=== PATIENT | female | born 1950 | race Caucasian/White ===

== ENCOUNTER 2016-06-09 13:11 | Day surgery (SDC) | payer OTHER ==
[~2016-06-09] VITALS: Ht 158.8 cm; Wt 44.5 kg
[2016-06-09 13:45] VITALS: Ht 158.8 cm; Wt 44.5 kg
[2016-06-09] MEDS ORDERED: celexa PO (14:30)
[2016-06-09] MEDS ORDERED: percocet PO (14:30)
[2016-06-09] MEDS ORDERED: gabapentin PO (14:30)
[2016-06-09] MEDS ORDERED: meloxicam PO (14:30)
[2016-06-09] MEDS ORDERED: [UNRECOGNIZED DRUG - OTHER] PO (14:30)
[2016-06-09] MEDS ORDERED: methocarbamol PO (14:30)
[2016-06-09] MEDS ORDERED: trazodone PO (14:30)
[2016-06-09] MEDS ORDERED: lovastatin PO (14:30)
[2016-06-09 15:28] VITALS: BP 137/66; PULSE 57; RESP 16
[2016-06-09] MEDS ORDERED: PROPOFOL 40 ML ONE (15:31)
[2016-06-09] MEDS ORDERED: LIDOCAINE 2% (SDV) 5 ML INJ ONE (15:31)
[2016-06-09 16:15] VITALS: BP 116/58; PULSE 67; RESP 16
[2016-06-09 16:38] VITALS: BP 109/67; PULSE 68; RESP 18
--- NOTE | 2016-06-10 14:37 | GILP ---
DATE OF PROCEDURE: NAME OF PROCEDURES: 1. Colonoscopy with polyp ablation. 2. Colonoscopy with biopsies and localization tattoo. SURGEON: Amira Washburn MD PREOPERATIVE DIAGNOSIS(ES) POSTOPERATIVE DIAGNOSIS(ES) HISTORY AND INDICATIONS: The patient is being evaluated for unexplained weight loss. PREMEDICATION: Monitored anesthesia care by anesthesiologist. INSTRUMENT USED: Olympus colonoscope. PREPARATION: Adequate. TECHNIQUE: After informed consent, with the patient/relatives understanding the procedure, its indic ations potential risks and complications, including but not limited to: allergic reaction, bleeding, perforation, infection, missed lesions and after all pertinent questions were answered to the patie nt's satisfaction, the patient/relatives signed the witnessed informed consent. Following this, premedication was administered slowly IV push by under careful cardiovascular and re spiratory monitoring with pulse oximetry, automatic blood pressure and cable dispatcher. Once the sedativ e effect was achieved, the patient was placed in the left lateral decubitus position, digital rectal examination was performed. The colonoscope was then introduced and advanced under visual control th roughout all segments of the colon including: the rectum, sigmoid, descending colon, splenic flexure , transverse colon, hepatic flexure, ascending colon and finally reaching the cecum which was clearl y identified by transillumination, finger indentation and the ileocecal valve. Careful examination o f the mucosa of the lower gastrointestinal tract both on insertion as well as withdrawal of the inst rument disclosed the following findings: Rectal Examination: No evidence of perirectal disease, no masses. Colonic Mucosa: There is a 2 cm broad-based polyp in the proximal rectum approximately 12 cm from t he anal verge. The polyp was extensively biopsied and localization tattoo was applied. There is a 6 mm polyp opposite to the previously described lesion which was left untouched as it angelo l be removed at the time of surgery. Two small 4 mm polyps were noted in the sigmoid colon, were completely ablated with biopsy forceps. There is diverticulosis throughout the colon which is graded as mild. The remainder of colonic mucosa is unremarkable. The ileocecal valve was clearly identified and alma rosa ears unremarkable. The instrument was withdrawn reexamining the mucosa in detail. No additional ab normalities are noted with exception of moderate-sized internal hemorrhoids. The instrument was then withdrawn, the patient tolerated the procedure well and was transferred out of the Endoscopy Suite awake and in good condition to continue recovery under observation. IMPRESSION: 1. A 2 cm broad-based polyp in the proximal rectum at 12 cm from the anal verge, biopsied and loca lization tattoo applied. 2. A 6 mm polyp opposite to the 2 cm broad-based lesion, left untouched as it will be in the same s urgical specimen. 3. Two small 4 mm polyps in the sigmoid colon ablated. 4. Diverticulosis, mild. 5. Moderate-sized internal hemorrhoids. PLAN: Pathology will be reviewed as soon as available. Surgical evaluation. Further recommendatio n will depend on the patient's clinical course. Dictated By: AMIRA WASHBURN MS/YOLA Conf#: [id number] DID#: [id number]
--- NOTE | 2016-06-10 15:12 | GILP ---
DATE OF PROCEDURE: 06/09/2016 PROCEDURE: Esophagogastroduodenoscopy with biopsies. BRIEF HISTORY/INDICATIONS: Patient is being evaluated for unexplained weight loss. PREMEDICATION: Monitored anesthesia care by anesthesiologist. SURGEON: Kee Washburn MD. TECHNIQUE: After informed consent, with the patient/relatives understanding the procedure, its indic ations, potential risks and complications, including but not limited to: allergic reaction, bleeding , perforation or infection, and after all pertinent questions were answered to the patients satisfac tion, the patient/relatives signed witnessed informed consent. Following this, premedication was administered slowly IV push under careful cardiovascular and respi ratory monitoring with pulse oximetry, automatic blood pressure and groundwater monitoring technician. Once the sedative effect was achieved the patient was place in the left lateral decubitus, the panen doscope was introduced and advanced under visual control. Careful examination of the upper gastrointestinal tract, both on insertion as well as withdrawal of the instrument disclosed the following findings: ESOPHAGUS: The distal esophagus shows erythema and edema of the mucosa of a moderate degree. STOMACH: Upon entrance to the stomach, air was insufflated, the gastric beltran distended normally. There is erythema and edema of the mucosa of a moderate degree. Biopsies were obtained to rule out H. pylori infection. PYLORUS: he pylorus appears patent and within normal limits, with no evidence of gastric outlet obst ruction. DUODENUM: The duodenal mucosa was carefully examined in the duodenal bulb as well as the second port ion of the duodenum and appears unremarkable with no evidence of duodenitis, ulcer or neoplasm. The instrument was then withdrawn, the patient tolerated the procedure well and was transfer out of the endoscopy suite awake, and in good condition to continue recovery under observation IMPRESSION: 1. Distal esophagitis. 2. Gastritis, rule out Helicobacter pylori infection; biopsies obtained. PLAN: The patient will be treated with PPIs. Further recommendation will depend on review of biops ies as well as patient's clinical course. Dictated By: KEE WASHBURN MS/YOLA Conf#: [id number] DID#: [id number]
== END 2016-06-09 16:34 | disposition home or self-care (01) ==
LOC: GIL 13:11
PROVIDERS: ATTEND Internal Medicine Gastroenterology
DX: Z12.11 Encounter for screening for malignant neoplasm of colon (principal); D12.5 Benign neoplasm of sigmoid colon; K20.8 Other esophagitis; K63.5 Polyp of colon; K29.70 Gastritis, unspecified, without bleeding
CPT/HCPCS: 43239; 45380; 88305; 88312; Z7610

== ENCOUNTER 2016-07-16 09:40 | Inpatient (IN) | payer OTHER ==
[2016-07-15 12:02] VITALS: Ht 160 cm; Wt 46.0 kg
[~2016-07-16] VITALS: Ht 160 cm; Wt 46.0 kg
[2016-07-16] VITALS (25 sets, daily range): BP systolic 102–167; BP diastolic 49–81; PULSE 56–96; RESP 18–28
[~2016-07-16 09:40] MED LIST: DESFLURANE 15 MIN ONE; ONDANSETRON 4 MG INJ ONE; ROCURONIUM 50 MG INJ ONE; SUCCINYLCHOLINE CHLORIDE 100 MG/5 ML SYG IV ONE; [UNRECOGNIZED DRUG - OTHER] PO; celexa PO; gabapentin PO; lovastatin PO; meloxicam PO; methocarbamol PO; percocet PO; trazodone PO
[2016-07-16] MEDS ORDERED: OXYC-209 PO (10:16)
[2016-07-16] MEDS ORDERED: CITA-104 PO (10:16)
[2016-07-16] MEDS ORDERED: PREM9 PO (10:17)
[2016-07-16] MEDS ORDERED: MELO-109 PO (10:17)
[2016-07-16] MEDS ORDERED: MEDR2.5T PO (10:18)
[2016-07-16] MEDS ORDERED: OMEP40CA6 PO (10:18)
[2016-07-16] MEDS ORDERED: METH750T2 PO (10:19)
[2016-07-16] MEDS ORDERED: LOVA10TA63 PO (10:19)
[2016-07-16] MEDS ORDERED: TRAZ50TA18 PO (10:20)
[2016-07-16] MEDS ORDERED: ALPR1TAB2 PO (10:20)
[2016-07-16] MEDS ORDERED: GABA-528 PO (10:20)
[2016-07-16] MEDS ORDERED: ALBU18HF INHALATION (10:21)
[2016-07-16] MEDS ORDERED: MOME13HF2 INHALATION (10:21)
[2016-07-16 10:56] LABS: ADD SCAN DIFF NO
[2016-07-16 11:00] LABS: BASOPHILS % 0.5 % (0.0-2.0); EOSINOPHILS # 0.1 10^3/ul (0.0-0.5); EOSINOPHILS % 0.9 % (0.0-7.0); HEMATOCRIT 36.6 % (37.0-47.0); HEMOGLOBIN 12.4 g/dl (12.0-16.0); LYMPHOCYTES # 1.9 10^3/ul (0.8-2.9); MEAN CORPUSCULAR HEMOGLOBIN 32.4 pg (29.0-33.0); MEAN CORPUSCULAR HGB CONC 33.9 g/dl (32.0-37.0); MEAN CORPUSCULAR VOLUME 95.6 fl (82.0-101.0); MONOCYTE # 0.5 10^3/ul (0.3-0.9); MONOCYTES % 5.5 % (0.0-11.0); NEUTROPHIL # 5.7 10^3/ul (1.6-7.5); NEUTROPHILS % 69.7 % (39.0-77.0); PLATELET COUNT 291 10^3/UL (140-415); RED BLOOD COUNT 3.83 10^6/ul (4.20-5.40); RED CELL DISTRIBUTION WIDTH 11.5 % (11.5-14.5); WHITE BLOOD COUNT 8.2 10^3/ul (4.8-10.8)
[2016-07-16 11:11] LABS: INR 1.02; PROTIME 13.4 Sec (12.2-14.2)
[2016-07-16 11:13] LABS: PARTIAL THROMBOPLASTIN TIME 34.4 Sec (25.0-35.0)
[2016-07-16] MEDS: SOD CHLORIDE 0.9% 1,000 ML IV SCH ×2 (11:30→22:57)
[2016-07-16] MEDS ORDERED: AMPICILLIN/SULB 3 GM/NS (PMX) 100 ML IVPB SCH (11:30)
[2016-07-16] MEDS ORDERED: Metronidazole 500 MG in NS 100 ML IVPB SCH (11:30)
[2016-07-16] MEDS ORDERED: FENTAnyl 50 MCG/ML VIAL ONE ×3 (12:22→15:08)
[2016-07-16 13:29] LABS: CREATININE 0.57 mg/dl (0.44-1.00); POTASSIUM 4.2 mmol/L (3.5-5.1)
[2016-07-16] MEDS ORDERED: METOCLOPRAMIDE 10 MG INJ IV PRN (13:30)
[2016-07-16] MEDS ORDERED: MEPERIDINE 25 MG INJ IV PRN (13:30)
[2016-07-16] MEDS ORDERED: DIPHENHYDRAMINE 50 MG INJ IV PRN (13:30)
[2016-07-16] MEDS ORDERED: HYDROmorphONE (0.2 MG/ML) 10ML SYG IV PRN ×2 (13:30)
[2016-07-16] MEDS ORDERED: FENTAnyl 50 MCG/ML VIAL IV PRN ×2 (13:30)
[2016-07-16] MEDS ORDERED: ONDANSETRON 4 MG INJ IV PRN ×2 (13:30→19:30)
[2016-07-16 13:32] LABS: CALCIUM 9.2 mg/dl (8.4-10.2)
[2016-07-16] MEDS ORDERED: ROPIVACAINE 0.5 % 30 ML VIAL ONE (14:59)
[2016-07-16] MEDS ORDERED: PROPOFOL 40 ML ONE (14:59)
[2016-07-16] MEDS ORDERED: GLYCOPYRROLATE 0.4 MG INJ ONE (14:59)
[2016-07-16] MEDS ORDERED: LIDOCAINE 2% (SDV) 5 ML INJ ONE (14:59)
[2016-07-16] MEDS ORDERED: NEOSTIGMINE 3 MG/3 ML SYRINGE ONE (14:59)
[2016-07-16] MEDS: HYDROmorphONE (0.2 MG/ML) 10ML SYG IV PRN ×3 (15:51→16:06)
[2016-07-16] MEDS ORDERED: morphine 2 MG INJ IV PRN (16:00)
[2016-07-16] MEDS: HYDROmorphONE 0.2 MG/ML PCA IV SCH (16:06)
--- NOTE | 2016-07-16 16:09 | OPR ---
DATE OF OPERATION: 07/16/2016 INDICATIONS: This is a 65-year-old female with an unresectable rectal polyp. She is brought to the hospital for laparoscopic rectal LAR. Risks, alternatives, benefits, and personnel were discussed with the patient. The patient expressed understanding and consents to the operation. PREOPERATIVE DIAGNOSIS: Unresectable rectal polyp. POSTOPERATIVE DIAGNOSIS: Unresectable rectal polyp. OPERATION PERFORMED: 1. Laparoscopic low anterior resection with hand assist. 2. Laparoscopic splenic flexure mobilization. SURGEON: Sola Saldivar MD SPECIMEN: Low anterior rectum and proximal additional rectal margin and proximal and distal anastom otic donuts. COMPLICATIONS: None. ANESTHESIA: General. PROCEDURE: The patient was taken to the OR and prepped and draped in usual sterile fashion. Surgic al timeout was performed. IV antibiotics were given. Infraumbilical midline incision is made with a 15 blade. Dissection cautery was carried down to the fascia, 0 Vicryl stay sutures were placed on either side of the midline. The midline was entered. Chio trocar is introduced. Pneumoperitone um established. Suprapubic 12 mm optical trocar in right lower quadrant, 12 mm optical trocars are placed under direct visualization. Upon initial inspection, there are tattoo hernandez that are actuall y a lot lower than suspected from the colonoscopy near the peritoneal reflection. Dissection was fi rst initiated by addressing the left colic artery. The left colic artery was identified and dissect ed out with laparoscopic Harmonic. This was then divided with 45 [place] vascular load stapler. Ad ditional clips were placed for reinforcement. White line of [place] was followed proximally along the left colon all the way to the splenic flexure. The splenic flexure is mobilized. This area was la paroscopically mobilized by medialization with laparoscopic Harmonic and blunt dissection. Addition ally, the transverse colon is divided from the omentum with laparoscopic Harmonic. Additionally, th e rectum is mobilized by freeing up the lateral stalks. Of note, the rectum was mobilized fully wit h cranial traction. It appeared that the [place] stapler would not fire below the tattoo alicia, whic h was near the peritoneal reflection. The GelPort was used and placed in the midline. This allowed further medialization of the colon and mobilization. The rectum was pulled more cranially and rect al artery was divided using laparoscopic Harmonic. Even with further mobilization, it appeared that the [place] stapler would fire below the tattoo alicia. The midline incision was extended inferiorly . The rectum was then mobilized medially and left colon was fully mobilized medially. The rectum w as divided along the sacral promontory with a 45 [place] blue load stapler. The contour stapler was used to fire below the tattoo alicia. The specimen was marked with proximal rectum with suture after it was further divided from the mesorectum. This was sent for specimen. The pathologist open the specimen grossly and found the unresectable polyp. Additional margin of rectum was then divided and sent for specimen. There was good vascular flow to the distal portion of the colon. EEA sizers we re placed into the colon up to 29. The anvil sutured down with a running 3-0 PDS. The anal sizers were placed with appropriate identification of the distal rectum. EEA stapler was placed into the a nus and the anvil appropriately placed and was fired. Leak test was performed by placing irrigation into the pelvis and with insufflation of bulb syringe. Additionally, rigid proctoscopy was perform ed with identification of good anastomosis. The midline was then closed with 2 looped #1 PDS from s uperior to inferior and anterior to superior and tied in the midline. The wound was irrigated with irrigation. The skin was closed with skin martinez. Dry dressings were applied. Dictated By: SOLA HERRERA/YOLA Conf#: [id number] DID#: [id number]
[2016-07-16 16:34] LABS: ADD SCAN DIFF NO
[2016-07-16 16:37] LABS: BASOPHIL # 0.1 10^3/ul (0.0-0.1); BASOPHILS % 0.3 % (0.0-2.0); EOSINOPHILS % 0.1 % (0.0-7.0); HEMATOCRIT 38.8 % (37.0-47.0); HEMOGLOBIN 12.9 g/dl (12.0-16.0); LYMPHOCYTES # 1.5 10^3/ul (0.8-2.9); LYMPHOCYTES % 8.2 % (15.0-51.0); MEAN CORPUSCULAR HGB CONC 33.2 g/dl (32.0-37.0); MEAN CORPUSCULAR VOLUME 96.3 fl (82.0-101.0); MEAN PLATELET VOLUME 9.6 fl (7.4-10.4); MONOCYTE # 0.9 10^3/ul (0.3-0.9); MONOCYTES % 5.1 % (0.0-11.0); NEUTROPHIL # 15.2 10^3/ul (1.6-7.5); NEUTROPHILS % 85.9 % (39.0-77.0); PLATELET COUNT 330 10^3/UL (140-415); RED BLOOD COUNT 4.03 10^6/ul (4.20-5.40); RED CELL DISTRIBUTION WIDTH 11.5 % (11.5-14.5); WHITE BLOOD COUNT 17.8 10^3/ul (4.8-10.8)
[2016-07-16] MEDS: CIPROFLOXACIN 400MG/D5W 200 ML IVPB SCH (16:39)
[2016-07-16] MEDS: LACTATED RINGER'S 1,000 ML IV SCH ×2 (16:41→23:08)
[2016-07-16 16:49] LABS: ALBUMIN 3.5 g/dl (3.3-4.9)
[2016-07-16 16:52] LABS: ALBUMIN/GLOBULIN RATIO 1.29; BILIRUBIN,INDIRECT 0.2 mg/dl (0-1.1); BILIRUBIN,TOTAL 0.2 mg/dl (0.2-1.3); TOTAL PROTEIN 6.2 g/dl (6.1-8.1)
[2016-07-16 16:55] LABS: CALCIUM 8.6 mg/dl (8.4-10.2); CREATININE 0.58 mg/dl (0.44-1.00); POTASSIUM 3.9 mmol/L (3.5-5.1)
--- NOTE | 2016-07-16 18:58 | HP ---
DATE OF ADMISSION: 07/16/2016 CHIEF COMPLAINT: HISTORY OF PRESENT ILLNESS: History was obtained from medical records and some questions were asked from the patient. Patient was lethargic but arousable and was following commands. The patient is a 65-year-old female with bilateral rotator cuff repair, chronic pain syndrome and also has anxiety. The patient prior to surgery used to be on Xanax and trazodone and also was on gabapentin and Perc ocet. The patient was recently seen by Dr. Washburn for unexplained, unintentional weight loss and un derwent colonoscopy and EGD. EGD revealed distal esophagitis and gastritis; however, colonoscopy re vealed a 2 cm broad-based polyp in the proximal rectum at 12 cm from the anal verge. The 2 cm polyp was a broadbased lesion. The patient was referred to Dr. Saldivar underwent laparoscopic low anterior re section with hand assist. The polyp has been sent for pathology. The patient is being admitted for further evaluation and management. The patient denied any chest pain and is breathing comfortably, no reported vomiting, although patient does feel nauseated and has been given Zofran and Reglan rece ntly. No reported wheezing or hypoxemia. Since surgery, the patient has no leg edema. REVIEW OF SYSTEMS: Rather limited, the patient was sleepy. PAST MEDICAL HISTORY: As stated above. PAST SURGICAL HISTORY: As stated above. ALLERGIES: NONE. SOCIAL HISTORY: Ex-smoker. No alcohol use. FAMILY HISTORY: Negative for colon CA or colon polyp. PHYSICAL EXAMINATION: GENERAL: The patient is sleepy but easily arousable. Follows simple commands. VITAL SIGNS: Temperature 98.2, pulse 70, respirations 19, blood pressure 150/67, O2 saturation 97% on 2 liters nasal cannula. HEENT: Conjunctivae normal. Oropharynx revealed dry oral mucosa. Nose and ears normal. NECK: Supple. No mass, no thyromegaly. LUNGS: Clear to auscultation. CARDIOVASCULAR: S1, S2 normal, no murmur. ABDOMEN: Nondistended. EXTREMITIES: No leg edema. Pedal pulses palpable. SKIN: Without acute rash. NEUROLOGIC: The patient is lethargic but arousable and follows simple commands. LABORATORY DATA: Prior to surgery WBC 8.2, hemoglobin 12.4, platelet 291. Sodium 141, potassium 4. 2, BUN 15, creatinine 0.5, glucose 74. IMPRESSION: 1. Undetectable rectal polyp, status post laparoscopic low anterior resection. 2. Chronic bilateral shoulder pain status post bilateral rotator cuff repair. 3. Anxiety. PLAN: Patient admitted on medical floor. Patient will be kept n.p.o. She will be started on IV Cip ro and IV Flagyl. 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 We will use ____for deep venous thrombosis prophylax is. Will hold off on her p.o. medications. The patient apparently does have history of chronic obs tructive pulmonary disease due to smoking in the past and was taking Ventolin inhaler as well as Dul era. Will add DuoNeb twice a day and q.6h. p.r.n. postoperatively. We will obtain TSH in view of her history of weight loss. As per records from Dr. Washburn, the patient lost about 25 pounds in the last 6 months. The patient will continue to follow up with her primary care physician upon dischar ge for further evaluation and treatment. Dictated By: MISHA ENGLE/YOLA Conf#: [id number] DID#: [id number]
[2016-07-16 19:28] LABS: ADD UMIC NO; URINE BILIRUBIN (Dip) NEGATIVE (NEGATIVE); URINE BLOOD (Dip) NEGATIVE (NEGATIVE); URINE COLOR LT. YELLOW (YELLOW); URINE GLUCOSE (Dip) NEGATIVE (NEGATIVE); URINE KETONES (Dip) 3+ (NEGATIVE); URINE LEUKOCYTE ESTERASE (Dip) NEGATIVE (NEGATIVE); URINE NITRITE (Dip) NEGATIVE (NEGATIVE); URINE TOTAL PROTEIN (Dip) NEGATIVE (NEGATIVE); URINE UROBILINOGEN (Dip) 0.2 E.U./dL (0.1-1.0)
[2016-07-16 19:38] LABS: BACTERIA,URINE FEW; URINE RBCS 0-2 /HPF ([0,])
[2016-07-16] MEDS: metroNIDAZOLE 500 MG/NS (PMX) 100 ML IVPB SCH (20:18)
[2016-07-16] MEDS ORDERED: hydrALAzine 20 MG INJ IV PRN (21:00)
[2016-07-16] MEDS: METOCLOPRAMIDE 10 MG INJ IV PRN (23:08)
[2016-07-16] MEDS ORDERED: VITAMIN A & D 5 GM OINT PACKET TOP ONE (23:25)
[2016-07-17] MEDS ORDERED: METOCLOPRAMIDE 10 MG INJ IV SCH
[2016-07-17] MEDS: ONDANSETRON 4 MG INJ IV PRN ×3 (00:57→20:15)
[2016-07-17] MEDS: METOCLOPRAMIDE 10 MG INJ IV PRN ×3 (04:42→23:45)
[2016-07-17] MEDS: CIPROFLOXACIN 400MG/D5W 200 ML IVPB SCH (04:42)
[2016-07-17 05:08] VITALS: BP 154/70; PULSE 78; RESP 19
[2016-07-17 05:18] LABS: ADD SCAN DIFF NO
[2016-07-17 05:24] LABS: BASOPHILS % 0.1 % (0.0-2.0); HEMATOCRIT 37.2 % (37.0-47.0); HEMOGLOBIN 12.2 g/dl (12.0-16.0); LYMPHOCYTES % 5.2 % (15.0-51.0); MEAN CORPUSCULAR HEMOGLOBIN 31.4 pg (29.0-33.0); MEAN CORPUSCULAR HGB CONC 32.8 g/dl (32.0-37.0); MEAN CORPUSCULAR VOLUME 95.9 fl (82.0-101.0); MEAN PLATELET VOLUME 9.9 fl (7.4-10.4); MONOCYTES % 5.3 % (0.0-11.0); NEUTROPHIL # 16.5 10^3/ul (1.6-7.5); PLATELET COUNT 303 10^3/UL (140-415); RED BLOOD COUNT 3.88 10^6/ul (4.20-5.40); RED CELL DISTRIBUTION WIDTH 11.7 % (11.5-14.5); WHITE BLOOD COUNT 18.5 10^3/ul (4.8-10.8)
[2016-07-17 05:34] LABS: ALBUMIN 3.7 g/dl (3.3-4.9)
[2016-07-17 05:35] LABS: POTASSIUM 4.7 mmol/L (3.5-5.1)
[2016-07-17 05:37] LABS: ALBUMIN/GLOBULIN RATIO 1.27; BILIRUBIN,INDIRECT 0.2 mg/dl (0-1.1); BILIRUBIN,TOTAL 0.2 mg/dl (0.2-1.3); CREATININE 0.56 mg/dl (0.44-1.00); TOTAL PROTEIN 6.6 g/dl (6.1-8.1)
[2016-07-17 05:38] LABS: CALCIUM 8.7 mg/dl (8.4-10.2)
[2016-07-17] MEDS: metroNIDAZOLE 500 MG/NS (PMX) 100 ML IVPB SCH ×3 (05:55→21:04)
[2016-07-17 08:05] VITALS: BP 146/66; RESP 16
[2016-07-17] MEDS: HYDROmorphONE 0.2 MG/ML PCA IV SCH ×3 (11:30→20:28)
[2016-07-17] MEDS: LACTATED RINGER'S 1,000 ML IV SCH ×2 (11:33→21:33)
--- NOTE | 2016-07-17 12:29 | PN ---
Date/Time of Note Date/Time of Note DATE: 07/17/16 TIME: 12:28 Assessment/Plan VTE Prophylaxis VTE Prophylaxis Intervention: SCD's Lines/Catheters IV Catheter Type (from Nrsg): Peripheral IV Urinary Cath still in place: Yes Reason Cath still needed: urinary retention Assessment/Plan Chief Complaint/Hosp Course s/p lap hand assist converted to open LAR with low colorectal anastomosis Problems: Subjective 24 Hr Interval Summary Free Text/Dictation routine post op pain, no other issues Exam/Review of Systems Vital Signs Vitals Vital Signs Date Time Temp Pulse Resp B/P Pulse Ox O2 Delivery O2 Flow Rate FiO2 07/17/16 08:05 97.8 72 16 146/66 97 07/17/16 05:08 Nasal Cannula 2.0 Intake and Output 07/16/16 07/16/16 07/17/16 15:00 23:00 07:00 Intake Total 1800 ml 0 ml 1270 ml Output Total 300 ml 170 ml 1500 ml Balance 1500 ml -170 ml -230 ml Exam appropriately tender,dressings intact Results Result Diagram: 07/17/16 0430 07/17/16 0430 Results 24 hrs Laboratory Tests Test 07/16/16 15:54 07/16/16 16:15 07/17/16 04:30 Urine Color LT. YELLOW Urine Clarity CLEAR Urine pH 5.5 Urine Specific [place] 1.025 Urine Ketones 3+ H Urine Nitrite NEGATIVE Urine Bilirubin NEGATIVE Urine Urobilinogen 0.2 E.U./dL Urine Leukocyte Esterase NEGATIVE Urine Microscopic RBC 0-2 Urine Microscopic WBC 0-2 Urine Epithelial Cells FEW Urine Bacteria FEW Urine Hemoglobin NEGATIVE Urine Glucose NEGATIVE Urine Total Protein NEGATIVE White Blood Count 17.8 #H 18.5 H Red Blood Count 4.03 L 3.88 L Hemoglobin 12.9 12.2 Hematocrit 38.8 37.2 Mean Corpuscular Volume 96.3 95.9 Mean Corpuscular Hemoglobin 32.0 31.4 Mean Corpuscular Hemoglobin Concent 33.2 32.8 Red Cell Distribution Width 11.5 11.7 Platelet Count 330 303 Mean Platelet Volume 9.6 9.9 Neutrophils % 85.9 H 89.0 H Lymphocytes % 8.2 L 5.2 L Monocytes % 5.1 5.3 Eosinophils % 0.1 0.0 Basophils % 0.3 0.1 Nucleated Red Blood Cells % 0.0 0.0 Neutrophils # 15.2 H 16.5 H Lymphocytes # 1.5 1.0 Monocytes # 0.9 1.0 H Eosinophils # 0.0 0.0 Basophils # 0.1 0.0 Nucleated Red Blood Cells # 0.0 0.0 Sodium Level 145 H 139 Potassium Level 3.9 4.7 Chloride Level 108 103 Carbon Dioxide Level 22 28 Anion Gap 19 H 13 Blood Urea Nitrogen 16 12 Creatinine 0.58 0.56 Glucose Level 108 141 Calcium Level 8.6 8.7 Total Bilirubin 0.2 0.2 Direct Bilirubin 0.00 0.00 Indirect Bilirubin 0.2 0.2 Aspartate Amino Transf (AST/SGOT) 31 35 Alanine Aminotransferase (ALT/SGPT) 30 36 Alkaline Phosphatase 66 59 Total Protein 6.2 6.6 Albumin 3.5 3.7 Globulin 2.70 2.90 Albumin/Globulin Ratio 1.29 1.27 Thyroid Stimulating Hormone (TSH) 1.180 Medications Medications Current Medications Sodium Chloride 1,000 ml @ 75 mls/hr [id number] IV ; Start 07/16/16 at 11:30 Metronidazole 100 ml @ 100 mls/hr Q8 IVPB Last administered on 07/17/16 05:55 ; Admin Dose 100 MLS/HR; Start 07/16/16 at 22:00 Ciprofloxacin/ Dextrose (Cipro Ivpb) 200 ml @ 200 mls/hr Q12H IVPB Last administered on 07/17/16 04:42; Admin Dose 200 MLS/HR; Start 07/16/16 at 16:00 ; Stop 07/17/16 at 15:59 Morphine Sulfate 2 mg 2 mg Q2H PRN IV PAIN LEVEL 6-10; Start 07/16/16 at 16:00 Lactated Ringer's (Lr) 1,000 ml @ 100 mls/hr Q10H IV Last administered on 07/16 23:08; Admin Dose 100 MLS/HR; Start 07/16/16 at 15:33 Hydromorphone HCl (Dilaudid TROLLEY OPERATOR) 0 MG/HR CONTINUOUS RATE ... Q4PCA IV Last administered on 07/17/16 11:30; Admin Dose 6 MG; Start 07/16/16 at 16:00 Ondansetron HCl (Zofran Inj) 4 mg Q6H PRN IV NAUSEA AND/OR VOMITING Last administered on 07/17/16 09:10; Admin Dose 4 MG; Start 07/16/16 at 19:30 Hydralazine HCl (Apresoline) 10 mg Q4H PRN IV elevated bp; Start 07/16/16 at 21 :00 Metoclopramide HCl (Reglan) 10 mg Q6H PRN IV nausea Last administered on 04:42; Admin Dose 10 MG; Start 07/16/16 at 23:00 Influenza Virus Vaccine (Fluzone) 0.5 ml ONCE ONCE IM* ; Start 07/17/16 at 16:00 ; Stop 07/17/16 at 16:01 Gisella QUIJANO Jul 17, 2016 12:29
[2016-07-17 13:11] VITALS: BP 115/58; PULSE 73; RESP 20
[2016-07-17] MEDS: SOD CHLORIDE 0.9% 1,000 ML IV SCH (14:10)
[2016-07-17] MEDS ORDERED: INFLUENZA VIRUS VACCINE 0.5 ML SYG IM* ONE (16:00)
[2016-07-17 16:05] VITALS: BP 103/57; PULSE 72; RESP 20
--- NOTE | 2016-07-17 19:44 | PN ---
Date/Time of Note Date/Time of Note DATE: 07/17/16 TIME: 19:42 Assessment/Plan VTE Prophylaxis VTE Prophylaxis Intervention: SCD's Lines/Catheters IV Catheter Type (from Nrsg): Peripheral IV Urinary Cath still in place: Yes Assessment/Plan Assessment/Plan 1. Undetectable rectal polyp, status post laparoscopic low anterior resection. 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 Chronic bilateral shoulder pain status post bilateral rotator cuff repair. - Pain control 3. Anxiety. - Xanax- PRN dw dr maciel. Subjective 24 Hr Interval Summary Genitourinary: other (rectal pain) Psychological: anxiety Exam/Review of Systems Vital Signs Vitals Vital Signs Date Time Temp Pulse Resp B/P Pulse Ox O2 Delivery O2 Flow Rate FiO2 07/17/16 17:00 20 07/17/16 16:05 72 103/57 96 Nasal Cannula 2.0 07/17/16 13:11 98.2 Intake and Output 07/16/16 07/16/16 07/17/16 15:00 23:00 07:00 Intake Total 1800 ml 0 ml 1270 ml Output Total 300 ml 170 ml 1500 ml Balance 1500 ml -170 ml -230 ml Exam Constitutional: alert, well developed Psych: nl mood/affect Head: atraumatic Eyes: EOMI, PERRL, nl sclera ENMT: nl external ears & nose Neck: non-tender Respiratory: clear to auscultation Cardiovascular: nl pulses Gastrointestinal: non-tender, other, soft Musculoskeletal: nl extremities to inspection Extremities: normal pulses Neurological: nl mental status, nl speech Skin: other Lymph: nontender Results Result Diagram: 07/17/16 0430 07/17/16 0430 Results 24 hrs Laboratory Tests Test 07/17/16 04:30 White Blood Count 18.5 H Red Blood Count 3.88 L Hemoglobin 12.2 Hematocrit 37.2 Mean Corpuscular Volume 95.9 Mean Corpuscular Hemoglobin 31.4 Mean Corpuscular Hemoglobin Concent 32.8 Red Cell Distribution Width 11.7 Platelet Count 303 Mean Platelet Volume 9.9 Neutrophils % 89.0 H Lymphocytes % 5.2 L Monocytes % 5.3 Eosinophils % 0.0 Basophils % 0.1 Nucleated Red Blood Cells % 0.0 Neutrophils # 16.5 H Lymphocytes # 1.0 Monocytes # 1.0 H Eosinophils # 0.0 Basophils # 0.0 Nucleated Red Blood Cells # 0.0 Sodium Level 139 Potassium Level 4.7 Chloride Level 103 Carbon Dioxide Level 28 Anion Gap 13 Blood Urea Nitrogen 12 Creatinine 0.56 Glucose Level 141 Calcium Level 8.7 Total Bilirubin 0.2 Direct Bilirubin 0.00 Indirect Bilirubin 0.2 Aspartate Amino Transf (AST/SGOT) 35 Alanine Aminotransferase (ALT/SGPT) 36 Alkaline Phosphatase 59 Total Protein 6.6 Albumin 3.7 Globulin 2.90 Albumin/Globulin Ratio 1.27 Thyroid Stimulating Hormone (TSH) 1.180 Medications Medications Current Medications Sodium Chloride 1,000 ml @ 75 mls/hr [id number] IV ; Start 07/16/16 at 11:30 Metronidazole (Flagyl 500 Mg (Pmx)) 100 ml @ 100 mls/hr Q8 IVPB Last administered on 07/17/16 13:04; Admin Dose 100 MLS/HR; Start 07/16/16 at 22:00 Morphine Sulfate 2 mg 2 mg Q2H PRN IV PAIN LEVEL 6-10; Start 07/16/16 at 16:00 Lactated Ringer's (Lr) 1,000 ml @ 100 mls/hr Q10H IV Last administered on 07/16 23:08; Admin Dose 100 MLS/HR; Start 07/16/16 at 15:33 Hydromorphone HCl (Dilaudid NETWORK OPERATIONS PROJECT MANAGER) 0 MG/HR CONTINUOUS RATE ... Q4PCA IV Last administered on 07/17/16 15:11; Admin Dose 6 MG; Start 07/16/16 at 16:00 Ondansetron HCl (Zofran Inj) 4 mg Q6H PRN IV NAUSEA AND/OR VOMITING Last administered on 07/17/16 09:10; Admin Dose 4 MG; Start 07/16/16 at 19:30 Hydralazine HCl (Apresoline) 10 mg Q4H PRN IV elevated bp; Start 07/16/16 at 21 :00 Metoclopramide HCl (Reglan) 10 mg Q6H PRN IV nausea Last administered on 13:04; Admin Dose 10 MG; Start 07/16/16 at 23:00 Alprazolam (Xanax) 1 mg Q12H PRN PO ANXIETY; Start 07/17/16 at 19:00 LEE BORJA Jul 17, 2016 19:44
[2016-07-17] MEDS: ALPRAZOLAM 1 MG TAB PO PRN (21:02)
[2016-07-17 22:14] VITALS: BP 108/53; RESP 20
[2016-07-18] MEDS: SOD CHLORIDE 0.9% 1,000 ML IV SCH ×2 (03:30→17:08)
[2016-07-18] MEDS: HYDROmorphONE 0.2 MG/ML PCA IV SCH ×2 (04:42→11:01)
[2016-07-18] MEDS: ONDANSETRON 4 MG INJ IV PRN ×2 (04:45→17:16)
[2016-07-18] MEDS: LACTATED RINGER'S 1,000 ML IV SCH ×2 (04:45→17:33)
[2016-07-18] MEDS: metroNIDAZOLE 500 MG/NS (PMX) 100 ML IVPB SCH ×3 (04:46→21:06)
[2016-07-18 04:56] LABS: ADD SCAN DIFF NO
[2016-07-18 05:23] LABS: POTASSIUM 4.1 mmol/L (3.5-5.1)
[2016-07-18 05:25] LABS: CREATININE 0.54 mg/dl (0.44-1.00)
[2016-07-18 05:26] LABS: BASOPHILS % 0.2 % (0.0-2.0); CALCIUM 8.5 mg/dl (8.4-10.2); EOSINOPHILS % 0.1 % (0.0-7.0); HEMATOCRIT 34.4 % (37.0-47.0); HEMOGLOBIN 11.3 g/dl (12.0-16.0); LYMPHOCYTES # 1.9 10^3/ul (0.8-2.9); LYMPHOCYTES % 10.8 % (15.0-51.0); MEAN CORPUSCULAR HGB CONC 32.8 g/dl (32.0-37.0); MEAN CORPUSCULAR VOLUME 97.5 fl (82.0-101.0); MEAN PLATELET VOLUME 9.9 fl (7.4-10.4); MONOCYTE # 1.1 10^3/ul (0.3-0.9); MONOCYTES % 6.2 % (0.0-11.0); NEUTROPHIL # 14.5 10^3/ul (1.6-7.5); NEUTROPHILS % 82.3 % (39.0-77.0); PLATELET COUNT 263 10^3/UL (140-415); RED BLOOD COUNT 3.53 10^6/ul (4.20-5.40); RED CELL DISTRIBUTION WIDTH 12.1 % (11.5-14.5); WHITE BLOOD COUNT 17.6 10^3/ul (4.8-10.8)
[2016-07-18] MEDS: ALPRAZOLAM 1 MG TAB PO PRN ×2 (07:51→21:06)
[2016-07-18 08:33] VITALS: BP 112/56; RESP 18
[2016-07-18] MEDS: METOCLOPRAMIDE 10 MG INJ IV PRN ×2 (10:08→21:06)
--- NOTE | 2016-07-18 10:18 | PN ---
Date/Time of Note Date/Time of Note DATE: 07/18/16 TIME: 10:17 Assessment/Plan VTE Prophylaxis VTE Prophylaxis Intervention: SCD's Lines/Catheters IV Catheter Type (from Nrsg): Peripheral IV Urinary Cath still in place: Yes Reason Cath still needed: other (indicate) Assessment/Plan Chief Complaint/Hosp Course s/p lap hand assist converted to open LAR with low colorectal anastomosis Problems: Assessment/Plan continue current management no flatus or bowel activity continue liquid diet for now Subjective 24 Hr Interval Summary Free Text/Dictation titrating for pain issues Exam/Review of Systems Vital Signs Vitals Vital Signs Date Time Temp Pulse Resp B/P Pulse Ox O2 Delivery O2 Flow Rate FiO2 07/18/16 08:33 98.5 71 18 112/56 94 07/17/16 16:05 Nasal Cannula 2.0 Intake and Output 07/17/16 07/17/16 07/18/16 15:00 23:00 07:00 Intake Total 100 ml 2000 ml 1800 ml Output Total 700 ml 1400 ml Balance 100 ml 1300 ml 400 ml Exam dressings intact Results Result Diagram: 07/18/16 0435 07/18/16 0435 Results 24 hrs Laboratory Tests Test 07/18/16 04:35 White Blood Count 17.6 H Red Blood Count 3.53 L Hemoglobin 11.3 L Hematocrit 34.4 L Mean Corpuscular Volume 97.5 Mean Corpuscular Hemoglobin 32.0 Mean Corpuscular Hemoglobin Concent 32.8 Red Cell Distribution Width 12.1 Platelet Count 263 Mean Platelet Volume 9.9 Neutrophils % 82.3 H Lymphocytes % 10.8 L Monocytes % 6.2 Eosinophils % 0.1 Basophils % 0.2 Nucleated Red Blood Cells % 0.0 Neutrophils # 14.5 H Lymphocytes # 1.9 Monocytes # 1.1 H Eosinophils # 0.0 Basophils # 0.0 Nucleated Red Blood Cells # 0.0 Sodium Level 141 Potassium Level 4.1 Chloride Level 105 Carbon Dioxide Level 30 Anion Gap 10 Blood Urea Nitrogen 14 Creatinine 0.54 Glucose Level 98 # Calcium Level 8.5 Medications Medications Current Medications Sodium Chloride 1,000 ml @ 75 mls/hr [id number] IV ; Start 07/16/16 at 11:30 Metronidazole (Flagyl 500 Mg (Pmx)) 100 ml @ 100 mls/hr Q8 IVPB Last administered on 07/18/16t 04:46; Admin Dose 100 MLS/HR; Start 07/16/16 at 22:00 Morphine Sulfate 2 mg 2 mg Q2H PRN IV PAIN LEVEL 6-10; Start 07/16/16 at 16:00 Lactated Ringer's (Lr) 1,000 ml @ 100 mls/hr Q10H IV Last administered on 07/18 04:45; Admin Dose 100 MLS/HR; Start 07/16/16 at 15:33 Hydromorphone HCl (Dilaudid PUBLIC TRANSPORTATION INSPECTOR) 0 MG/HR CONTINUOUS RATE ... Q4PCA IV Last administered on 07/18/16 04:42; Admin Dose 6 MG; Start 07/16/16 at 16:00 Ondansetron HCl (Zofran Inj) 4 mg Q6H PRN IV NAUSEA AND/OR VOMITING Last administered on 07/18/16 04:45; Admin Dose 4 MG; Start 07/16/16 at 19:30 Hydralazine HCl (Apresoline) 10 mg Q4H PRN IV elevated bp; Start 07/16/16 at 21 :00 Metoclopramide HCl (Reglan) 10 mg Q6H PRN IV nausea Last administered on 10:08; Admin Dose 10 MG; Start 07/16/16 at 23:00 Alprazolam (Xanax) 1 mg Q12H PRN PO ANXIETY Last administered on 07/18/16 07: 51; Admin Dose 1 MG; Start 07/17/16 at 19:00 Gisella QUIJANO Jul 18, 2016 10:18
[2016-07-18 12:52] VITALS: BP 118/56; PULSE 85; RESP 20
[2016-07-18 17:10] VITALS: BP 138/65; PULSE 94; RESP 20
[2016-07-18 19:00] VITALS: BP 151/67; RESP 18
--- NOTE | 2016-07-18 19:38 | PN ---
Date/Time of Note Date/Time of Note DATE: 07/18/16 TIME: 19:33 Assessment/Plan VTE Prophylaxis VTE Prophylaxis Intervention: SCD's Lines/Catheters IV Catheter Type (from Nrs): Peripheral IV Urinary Cath still in place: No Assessment/Plan Chief Complaint/Hosp Course -Unresectable rectal polyp, s/p lap hand assist converted to open LAR with low colorectal anastomosis -Anxiety -Status post bilateral rotator cuff repair Further recommendations based on clinical course. Plan of care discussed with Dr. Orr. Problems: Subjective 24 Hr Interval Summary Free Text/Dictation Patient's complains of generalized pain and weakness, started on liquid diet, patient continues on LOCK INSTALLER for pain control, negative flatus. Exam/Review of Systems Vital Signs Vitals Vital Signs Date Time Temp Pulse Resp B/P Pulse Ox O2 Delivery O2 Flow Rate FiO2 07/18/16 17:10 94 20 138/65 90 Nasal Cannula 3.0 07/18/16 08:33 98.5 Intake and Output 07/17/16 07/17/16 07/18/16 15:00 23:00 07:00 Intake Total 100 ml 2000 ml 1800 ml Output Total 700 ml 1400 ml Balance 100 ml 1300 ml 400 ml Exam Constitutional: alert, oriented Psych: no complaints Head: normocephalic Eyes: nl conjunctiva ENMT: nl external ears & nose Neck: non-tender, supple Respiratory: clear to auscultation Cardiovascular: nl pulses, regular rate and rhythm Gastrointestinal: other (Status post surgery), soft Extremities: normal pulses Neurological: CROP ROLLER II-XII intact Results Result Diagram: 07/18/16 0435 07/18/16 0435 Results 24 hrs Laboratory Tests Test 07/18/16 04:35 White Blood Count 17.6 H Red Blood Count 3.53 L Hemoglobin 11.3 L Hematocrit 34.4 L Mean Corpuscular Volume 97.5 Mean Corpuscular Hemoglobin 32.0 Mean Corpuscular Hemoglobin Concent 32.8 Red Cell Distribution Width 12.1 Platelet Count 263 Mean Platelet Volume 9.9 Neutrophils % 82.3 H Lymphocytes % 10.8 L Monocytes % 6.2 Eosinophils % 0.1 Basophils % 0.2 Nucleated Red Blood Cells % 0.0 Neutrophils # 14.5 H Lymphocytes # 1.9 Monocytes # 1.1 H Eosinophils # 0.0 Basophils # 0.0 Nucleated Red Blood Cells # 0.0 Sodium Level 141 Potassium Level 4.1 Chloride Level 105 Carbon Dioxide Level 30 Anion Gap 10 Blood Urea Nitrogen 14 Creatinine 0.54 Glucose Level 98 # Calcium Level 8.5 Medications Medications Current Medications Sodium Chloride 1,000 ml @ 75 mls/hr [id number] IV Last administered on 17:08; Admin Dose 75 MLS/HR; Start 07/16/16 at 11:30 Metronidazole (Flagyl 500 Mg (Pmx)) 100 ml @ 100 mls/hr Q8 IVPB Last administered on 07/18/16 13:12; Admin Dose 100 MLS/HR; Start 07/16/16 at 22:00 Morphine Sulfate 2 mg 2 mg Q2H PRN IV PAIN LEVEL 6-10; Start 07/16/16 at 16:00 Lactated Ringer's (Lr) 1,000 ml @ 100 mls/hr Q10H IV Last administered on 07/18 04:45; Admin Dose 100 MLS/HR; Start 07/16/16 at 15:33 Hydromorphone HCl (Dilaudid LOCK INSTALLER) 0 MG/HR CONTINUOUS RATE ... Q4PCA IV Last administered on 07/18/16 11:01; Admin Dose 6 MG; Start 07/16/16 at 16:00 Ondansetron HCl (Zofran Inj) 4 mg Q6H PRN IV NAUSEA AND/OR VOMITING Last administered on 07/18/16 17:16; Admin Dose 4 MG; Start 07/16/16 at 19:30 Hydralazine HCl (Apresoline) 10 mg Q4H PRN IV elevated bp; Start 07/16/16 at 21 :00 Metoclopramide HCl (Reglan) 10 mg Q6H PRN IV nausea Last administered on 10:08; Admin Dose 10 MG; Start 07/16/16 at 23:00 Alprazolam (Xanax) 1 mg Q12H PRN PO ANXIETY Last administered on 07/18/16 07: 51; Admin Dose 1 MG; Start 07/17/16 at 19:00 DASIA DE SOUZA Jul 18, 2016 19:38
[2016-07-18] MEDS ORDERED: VITAMIN A & D 5 GM OINT PACKET TOP ONE (21:05)
[2016-07-19] MEDS: ONDANSETRON 4 MG INJ IV PRN ×2 (01:26→19:15)
[2016-07-19] MEDS: HYDROmorphONE 0.2 MG/ML PCA IV SCH ×4 (01:32→22:13)
[2016-07-19] MEDS: LACTATED RINGER'S 1,000 ML IV SCH ×3 (03:33→10:47)
[2016-07-19 04:56] LABS: ADD SCAN DIFF NO
[2016-07-19 05:02] LABS: BASOPHILS % 0.3 % (0.0-2.0); EOSINOPHILS % 0.1 % (0.0-7.0); HEMATOCRIT 32.1 % (37.0-47.0); HEMOGLOBIN 10.6 g/dl (12.0-16.0); LYMPHOCYTES # 2.6 10^3/ul (0.8-2.9); LYMPHOCYTES % 18.3 % (15.0-51.0); MEAN CORPUSCULAR HEMOGLOBIN 31.8 pg (29.0-33.0); MEAN CORPUSCULAR VOLUME 96.4 fl (82.0-101.0); MEAN PLATELET VOLUME 9.7 fl (7.4-10.4); MONOCYTE # 0.9 10^3/ul (0.3-0.9); MONOCYTES % 6.1 % (0.0-11.0); NEUTROPHIL # 10.5 10^3/ul (1.6-7.5); NEUTROPHILS % 74.9 % (39.0-77.0); PLATELET COUNT 241 10^3/UL (140-415); RED BLOOD COUNT 3.33 10^6/ul (4.20-5.40); RED CELL DISTRIBUTION WIDTH 11.7 % (11.5-14.5)
[2016-07-19] MEDS: metroNIDAZOLE 500 MG/NS (PMX) 100 ML IVPB SCH ×3 (05:04→23:44)
[2016-07-19 05:20] LABS: POTASSIUM 3.5 mmol/L (3.5-5.1)
[2016-07-19 05:23] LABS: CREATININE 0.49 mg/dl (0.44-1.00)
[2016-07-19 05:24] LABS: CALCIUM 8.2 mg/dl (8.4-10.2)
[2016-07-19] MEDS: SOD CHLORIDE 0.9% 1,000 ML IV SCH ×2 (06:10→19:30)
[2016-07-19 08:16] VITALS: BP 131/61; RESP 20
[2016-07-19] MEDS: ALPRAZOLAM 1 MG TAB PO PRN ×2 (08:20→20:51)
[2016-07-19 12:59] VITALS: BP 149/71; PULSE 77; RESP 18
--- NOTE | 2016-07-19 13:55 | PN ---
Date/Time of Note Date/Time of Note DATE: 07/19/16 TIME: 13:52 Assessment/Plan VTE Prophylaxis VTE Prophylaxis Intervention: SCD's Lines/Catheters IV Catheter Type (from Nrs): Peripheral IV Urinary Cath still in place: No Assessment/Plan Assessment/Plan -Unresectable rectal polyp, s/p lap hand assist converted to open LAR with low colorectal anastomosis -Anxiety -Status post bilateral rotator cuff repair Further recommendations based on clinical course. Plan of care discussed with Dr. Orr. Exam/Review of Systems Vital Signs Vitals Vital Signs Date Time Temp Pulse Resp B/P Pulse Ox O2 Delivery O2 Flow Rate FiO2 07/19/16 12:59 20 07/19/16 12:59 98.2 77 149/71 92 Nasal Cannula 3.0 Intake and Output 07/18/16 07/18/16 07/19/16 14:59 22:59 06:59 Intake Total 100 ml 1480 ml 2090 ml Output Total 500 ml 2100 ml Balance 100 ml 980 ml -10 ml Results Result Diagram: 07/19/16 0443 07/19/16 0443 Results 24 hrs Laboratory Tests Test 07/19/16 04:43 White Blood Count 14.0 #H Red Blood Count 3.33 L Hemoglobin 10.6 L Hematocrit 32.1 L Mean Corpuscular Volume 96.4 Mean Corpuscular Hemoglobin 31.8 Mean Corpuscular Hemoglobin Concent 33.0 Red Cell Distribution Width 11.7 Platelet Count 241 Mean Platelet Volume 9.7 Neutrophils % 74.9 Lymphocytes % 18.3 Monocytes % 6.1 Eosinophils % 0.1 Basophils % 0.3 Nucleated Red Blood Cells % 0.0 Neutrophils # 10.5 H Lymphocytes # 2.6 Monocytes # 0.9 Eosinophils # 0.0 Basophils # 0.0 Nucleated Red Blood Cells # 0.0 Sodium Level 139 Potassium Level 3.5 Chloride Level 102 Carbon Dioxide Level 30 Anion Gap 11 Blood Urea Nitrogen 12 Creatinine 0.49 Glucose Level 86 Calcium Level 8.2 L Medications Medications Current Medications Sodium Chloride 1,000 ml @ 75 mls/hr [id number] IV Last administered on 17:08; Admin Dose 75 MLS/HR; Start 07/16/16 at 11:30 Metronidazole (Flagyl 500 Mg (Pmx)) 100 ml @ 100 mls/hr Q8 IVPB Last administered on 07/19/16 05:04; Admin Dose 100 MLS/HR; Start 07/16/16 at 22:00 Morphine Sulfate 2 mg 2 mg Q2H PRN IV PAIN LEVEL 6-10; Start 07/16/16 at 16:00 Lactated Ringer's (Lr) 1,000 ml @ 100 mls/hr Q10H IV Last administered on 07/19 10:47; Admin Dose 100 MLS/HR; Start 07/16/16 at 15:33 Hydromorphone HCl (Dilaudid MANAGER BOOKS) 0 MG/HR CONTINUOUS RATE ... Q4PCA IV Last administered on 07/19/16 08:25; Admin Dose 6 MG; Start 07/16/16 at 16:00 Ondansetron HCl (Zofran Inj) 4 mg Q6H PRN IV NAUSEA AND/OR VOMITING Last administered on 07/19/16 01:26; Admin Dose 4 MG; Start 07/16/16 at 19:30 Hydralazine HCl (Apresoline) 10 mg Q4H PRN IV elevated bp; Start 07/16/16 at 21 :00 Metoclopramide HCl (Reglan) 10 mg Q6H PRN IV nausea Last administered on 21:06; Admin Dose 10 MG; Start 07/16/16 at 23:00 Alprazolam (Xanax) 1 mg Q12H PRN PO ANXIETY Last administered on 07/19/16 08: 20; Admin Dose 1 MG; Start 07/17/16 at 19:00 LEE BORJA Jul 19, 2016 13:55
[2016-07-19] MEDS: PANTOPRAZOLE (EC) 40 MG TAB PO SCH (15:05)
--- NOTE | 2016-07-19 16:25 | PN ---
DATE: 07/19/2016 Postop day #3. OPERATION: Laparoscopic hand-assisted low anterior resection of the sigmoid colon for an unresectab le polyp. SUBJECTIVE: Feels slightly better. No bowel movement, no passing gas, has been out of bed, walks a round, has been urinating. The pain is better and is under control. OBJECTIVE: VITAL SIGNS: Temperature 98.2, pulse 77, respirations 20, blood pressure 149/71, saturation 92% on 2 liters of oxygen nasal flow. LABORATORY DATA: WBC 14,000 with 74% segmented, hemoglobin 10.6, hematocrit 32.1 Abdomen is slightly distended, tender on deep pressure all over. Legs, no calf tenderness. Sequential compression devices on the legs. ASSESSMENT: Postop day #3, status post laparoscopic low anterior resection of the colon for unresec table polyp. The patient is stable. Only leukocyte count is slightly up, which has been trending d own. Urinating okay. No bowel movement, no passing flatus. PLAN: Continue current care. Encourage walking around the [place] and also encouraged using the incen tive spirometry. Dictated By: NAYELI BARRIOS MD PS/NTS Conf#: [id number] DID#: [id number]
[2016-07-19] MEDS ORDERED: PANTOPRAZOLE (EC) 40 MG TAB PO SCH (18:00)
[2016-07-19] MEDS: DOCUSATE SODIUM 100 MG CAP PO SCH (20:51)
[2016-07-20 05:01] LABS: ADD SCAN DIFF NO
[2016-07-20 05:14] LABS: BASOPHILS % 0.3 % (0.0-2.0); EOSINOPHILS # 0.2 10^3/ul (0.0-0.5); EOSINOPHILS % 1.8 % (0.0-7.0); HEMOGLOBIN 10.6 g/dl (12.0-16.0); LYMPHOCYTES # 1.9 10^3/ul (0.8-2.9); LYMPHOCYTES % 17.8 % (15.0-51.0); MEAN CORPUSCULAR HEMOGLOBIN 31.5 pg (29.0-33.0); MEAN CORPUSCULAR HGB CONC 33.1 g/dl (32.0-37.0); MEAN CORPUSCULAR VOLUME 95.2 fl (82.0-101.0); MEAN PLATELET VOLUME 9.9 fl (7.4-10.4); MONOCYTE # 0.9 10^3/ul (0.3-0.9); NEUTROPHIL # 7.6 10^3/ul (1.6-7.5); NEUTROPHILS % 71.8 % (39.0-77.0); PLATELET COUNT 267 10^3/UL (140-415); RED BLOOD COUNT 3.36 10^6/ul (4.20-5.40); RED CELL DISTRIBUTION WIDTH 11.4 % (11.5-14.5); WHITE BLOOD COUNT 10.6 10^3/ul (4.8-10.8)
[2016-07-20 05:16] LABS: POTASSIUM 3.3 mmol/L (3.5-5.1)
[2016-07-20 05:18] LABS: CREATININE 0.44 mg/dl (0.44-1.00)
[2016-07-20 05:19] LABS: CALCIUM 7.9 mg/dl (8.4-10.2)
[2016-07-20] MEDS: PANTOPRAZOLE (EC) 40 MG TAB PO SCH ×2 (05:20→18:01)
[2016-07-20] MEDS: ONDANSETRON 4 MG INJ IV PRN (05:20)
[2016-07-20] MEDS: metroNIDAZOLE 500 MG/NS (PMX) 100 ML IVPB SCH ×3 (05:21→21:11)
[2016-07-20] MEDS: HYDROmorphONE 0.2 MG/ML PCA IV SCH ×3 (05:59→19:55)
[2016-07-20] MEDS ORDERED: VITAMIN A & D 5 GM OINT PACKET TOP ONE (06:00)
[2016-07-20 07:37] VITALS: BP 142/63; RESP 18
[2016-07-20 08:00] VITALS: BP 139/66; RESP 20
[2016-07-20] MEDS: SOD CHLORIDE 0.9% 1,000 ML IV SCH ×2 (08:50→15:16)
[2016-07-20] MEDS: LACTATED RINGER'S 1,000 ML IV SCH ×2 (09:33→19:33)
[2016-07-20] MEDS: ALPRAZOLAM 1 MG TAB PO PRN ×2 (09:48→21:11)
[2016-07-20] MEDS: DOCUSATE SODIUM 100 MG CAP PO SCH ×2 (09:48→21:11)
[2016-07-20] MEDS: METOCLOPRAMIDE 10 MG INJ IV PRN ×2 (10:34→21:11)
--- NOTE | 2016-07-20 15:17 | PN ---
Date/Time of Note Date/Time of Note DATE: 07/20/16 TIME: 15:15 Assessment/Plan VTE Prophylaxis VTE Prophylaxis Intervention: other Lines/Catheters [facility] Peripheral IV Urinary Cath still in place: No Assessment/Plan Assessment/Plan -Unresectable rectal polyp, s/p lap hand assist converted to open LAR with low colorectal anastomosis -Anxiety -Status post bilateral rotator cuff repair Further recommendations based on clinical course. Plan of care discussed with Dr. Orr. Subjective 24 Hr Interval Summary Constitutional: improved Eyes: no complaints ENT: no complaints Respiratory: no complaints Cardiovascular: no complaints Gastrointestinal: no complaints Genitourinary: no complaints Musculoskeletal: no complaints Skin: no complaints Neurologic: no complaints Endocrine: no complaints Psychological: no complaints Exam/Review of Systems Vital Signs Vitals Vital Signs Date Time Temp Pulse Resp B/P Pulse Ox O2 Delivery O2 Flow Rate FiO2 07/20/16 07:40 Nasal Cannula 2.0 07/20/16 07:37 98.6 72 18 142/63 90 Intake and Output 07/19/16 07/19/16 07/20/16 15:00 23:00 07:00 Intake Total 100 ml 2000 ml 1100 ml Output Total 1250 ml 500 ml Balance 100 ml 750 ml 600 ml Exam Constitutional: alert, oriented, well developed Psych: nl mood/affect Eyes: EOMI, PERRL, nl conjunctiva, nl sclera ENMT: nl external ears & nose Neck: non-tender Respiratory: clear to auscultation Cardiovascular: nl pulses Gastrointestinal: non-tender, soft Musculoskeletal: nl extremities to inspection Extremities: normal pulses Neurological: nl mental status, nl speech Lymph: nontender Results Result Diagram: 07/20/16 0440 07/20/16 0440 Results 24 hrs Laboratory Tests Test 07/20/16 04:40 White Blood Count 10.6 # Red Blood Count 3.36 L Hemoglobin 10.6 L Hematocrit 32.0 L Mean Corpuscular Volume 95.2 Mean Corpuscular Hemoglobin 31.5 Mean Corpuscular Hemoglobin Concent 33.1 Red Cell Distribution Width 11.4 L Platelet Count 267 Mean Platelet Volume 9.9 Neutrophils % 71.8 Lymphocytes % 17.8 Monocytes % 8.0 Eosinophils % 1.8 Basophils % 0.3 Nucleated Red Blood Cells % 0.0 Neutrophils # 7.6 H Lymphocytes # 1.9 Monocytes # 0.9 Eosinophils # 0.2 Basophils # 0.0 Nucleated Red Blood Cells # 0.0 Sodium Level 134 L Potassium Level 3.3 L Chloride Level 100 Carbon Dioxide Level 32 H Anion Gap 5 L Blood Urea Nitrogen 10 Creatinine 0.44 Glucose Level 81 Calcium Level 7.9 L Medications Medications Current Medications Sodium Chloride 1,000 ml @ 75 mls/hr [id number] IV Last administered on 19:30; Admin Dose 75 MLS/HR; Start 07/16/16 at 11:30 Metronidazole (Flagyl 500 Mg (Pmx)) 100 ml @ 100 mls/hr Q8 IVPB Last administered on 07/20/16 05:21; Admin Dose 100 MLS/HR; Start 07/16/16 at 22:00 Morphine Sulfate 2 mg 2 mg Q2H PRN IV PAIN LEVEL 6-10; Start 07/16/16 at 16:00 Lactated Ringer's (Lr) 1,000 ml @ 100 mls/hr Q10H IV Last administered on 07/19 10:47; Admin Dose 100 MLS/HR; Start 07/16/16 at 15:33 Hydromorphone HCl (Dilaudid BACK TENDER CLOTH PRINTING) 0 MG/HR CONTINUOUS RATE ... Q4PCA IV Last administered on 07/20/16 12:48; Admin Dose 6 MG; Start 07/16/16 at 16:00 Ondansetron HCl (Zofran Inj) 4 mg Q6H PRN IV NAUSEA AND/OR VOMITING Last administered on 07/20/16 05:20; Admin Dose 4 MG; Start 07/16/16 at 19:30 Hydralazine HCl (Apresoline) 10 mg Q4H PRN IV elevated bp; Start 07/16/16 at 21 :00 Metoclopramide HCl (Reglan) 10 mg Q6H PRN IV nausea Last administered on 10:34; Admin Dose 10 MG; Start 07/16/16 at 23:00 Alprazolam (Xanax) 1 mg Q12H PRN PO ANXIETY Last administered on 07/20/16 09: 48; Admin Dose 1 MG; Start 07/17/16 at 19:00 Docusate Sodium (Colace) 100 mg BID PO Last administered on 07/20/16 09:48; Admin Dose 100 MG; Start 07/19/16 at 21:00 Pantoprazole (Protonix Tab) 40 mg BID@06,18 PO Last administered on 07/20/16t 05:20; Admin Dose 40 MG; Start 07/19/16 at 14:59 LEE BORJA Jul 20, 2016 15:16
--- NOTE | 2016-07-20 18:00 | PN ---
DATE: 07/20/2016 Postop day #4. SUBJECTIVE: Does not have any specific complaint. Has been walking around the floor. No nausea, n o vomiting, no bowel movement, no passing flatus. OBJECTIVE: VITAL SIGNS: Temperature 98.6, heart rate 72, respirations 18, blood pressure 142/63, saturation 92 % on nasal cannula 2 liters. Patient is not doing very well on incentive spirometry. Maximum tidal volume is 1 liter. LABORATORY DATA: Today, WBC down to 10,600, normal with 71% segmented, hemoglobin 10.6, hematocrit is 32, is stable. Potassium 3.2, slightly low, BUN 10, creatinine 0.44. ABDOMEN: Slightly distended, soft, bowel sounds 2+ to 3+/4+. EXTREMITIES: Legs no calf tenderness. ASSESSMENT AND PLAN: Status post low anterior resection for polyp of the rectum. Patient is postop day #4. Has not passed gas or bowel movement, but is comfortable. Abdomen is not very distended, soft, bowel sounds present, not normal yet. PLAN: Continue current care. Hopefully, she is going to pass gas or bowel movement by tomorrow or the day after tomorrow, then we are going to advance her diet. Dictated By: NAYELI VENTURA/YOLA Conf#: [id number] DID#: [id number]
[2016-07-20 19:34] VITALS: BP 135/60; RESP 18
[2016-07-21] MEDS: HYDROmorphONE 0.2 MG/ML PCA IV SCH (04:50)
[2016-07-21 05:30] LABS: ADD SCAN DIFF NO
[2016-07-21] MEDS: PANTOPRAZOLE (EC) 40 MG TAB PO SCH ×2 (05:33→18:14)
[2016-07-21] MEDS: metroNIDAZOLE 500 MG/NS (PMX) 100 ML IVPB SCH ×3 (05:33→21:10)
[2016-07-21] MEDS: LACTATED RINGER'S 1,000 ML IV SCH ×2 (05:33→15:33)
[2016-07-21 05:45] LABS: BASOPHILS % 0.3 % (0.0-2.0); EOSINOPHILS # 0.2 10^3/ul (0.0-0.5); EOSINOPHILS % 1.7 % (0.0-7.0); HEMATOCRIT 32.3 % (37.0-47.0); HEMOGLOBIN 10.9 g/dl (12.0-16.0); LYMPHOCYTES # 1.6 10^3/ul (0.8-2.9); LYMPHOCYTES % 14.6 % (15.0-51.0); MEAN CORPUSCULAR HEMOGLOBIN 31.9 pg (29.0-33.0); MEAN CORPUSCULAR HGB CONC 33.7 g/dl (32.0-37.0); MEAN CORPUSCULAR VOLUME 94.4 fl (82.0-101.0); MEAN PLATELET VOLUME 9.7 fl (7.4-10.4); MONOCYTE # 1.1 10^3/ul (0.3-0.9); NEUTROPHILS % 73.2 % (39.0-77.0); PLATELET COUNT 303 10^3/UL (140-415); RED BLOOD COUNT 3.42 10^6/ul (4.20-5.40); RED CELL DISTRIBUTION WIDTH 11.4 % (11.5-14.5); WHITE BLOOD COUNT 10.9 10^3/ul (4.8-10.8)
[2016-07-21 06:21] LABS: POTASSIUM 3.3 mmol/L (3.5-5.1)
[2016-07-21 06:24] LABS: CREATININE 0.49 mg/dl (0.44-1.00)
[2016-07-21 06:25] LABS: CALCIUM 8.1 mg/dl (8.4-10.2)
[2016-07-21 07:41] VITALS: BP 148/67; RESP 18
[2016-07-21] MEDS: ALPRAZOLAM 1 MG TAB PO PRN ×2 (09:09→21:10)
[2016-07-21] MEDS: DOCUSATE SODIUM 100 MG CAP PO SCH ×2 (09:09→21:10)
--- NOTE | 2016-07-21 10:26 | PN ---
Date/Time of Note Date/Time of Note DATE: 07/21/16 TIME: 10:24 Assessment/Plan VTE Prophylaxis VTE Prophylaxis Intervention: SCD's Lines/Catheters IV Catheter Type (from [facility]): Peripheral IV Urinary Cath still in place: No Assessment/Plan Chief Complaint/Hosp Course s/p lap hand assist converted to open LAR with low colorectal anastomosis Problems: Assessment/Plan await bm function Subjective 24 Hr Interval Summary Free Text/Dictation doing well, no issue had flatus no BM Exam/Review of Systems Vital Signs Vitals Vital Signs Date Time Temp Pulse Resp B/P Pulse Ox O2 Delivery O2 Flow Rate FiO2 07/21/16 07:41 98.2 72 18 148/67 95 07/21/16 07:35 Nasal Cannula 2.0 Intake and Output 07/20/16 07/20/16 07/21/16 15:00 23:00 07:00 Intake Total 1300 ml 960 ml Output Total 950 ml Balance 1300 ml 10 ml Exam clean Results Result Diagram: 07/21/16 0420 07/21/16 0420 Results 24 hrs Laboratory Tests Test 07/21/16 04:20 White Blood Count 10.9 H Red Blood Count 3.42 L Hemoglobin 10.9 L Hematocrit 32.3 L Mean Corpuscular Volume 94.4 Mean Corpuscular Hemoglobin 31.9 Mean Corpuscular Hemoglobin Concent 33.7 Red Cell Distribution Width 11.4 L Platelet Count 303 Mean Platelet Volume 9.7 Neutrophils % 73.2 Lymphocytes % 14.6 L Monocytes % 10.0 Eosinophils % 1.7 Basophils % 0.3 Nucleated Red Blood Cells % 0.0 Neutrophils # 8.0 H Lymphocytes # 1.6 Monocytes # 1.1 H Eosinophils # 0.2 Basophils # 0.0 Nucleated Red Blood Cells # 0.0 Sodium Level 138 Potassium Level 3.3 L Chloride Level 100 Carbon Dioxide Level 31 Anion Gap 10 # Blood Urea Nitrogen 7 Creatinine 0.49 Glucose Level 77 Calcium Level 8.1 L Medications Medications Current Medications Sodium Chloride 1,000 ml @ 75 mls/hr [id number] IV Last administered on 15:16; Admin Dose 75 MLS/HR; Start 07/16/16 at 11:30 Metronidazole (Flagyl 500 Mg (Pmx)) 100 ml @ 100 mls/hr Q8 IVPB Last administered on 07/21/16 05:33; Admin Dose 100 MLS/HR; Start 07/16/16 at 22:00 Morphine Sulfate 2 mg 2 mg Q2H PRN IV PAIN LEVEL 6-10; Start 07/16/16 at 16:00 Lactated Ringer's (Lr) 1,000 ml @ 100 mls/hr Q10H IV Last administered on 07/19 10:47; Admin Dose 100 MLS/HR; Start 07/16/16 at 15:33 Ondansetron HCl (Zofran Inj) 4 mg Q6H PRN IV NAUSEA AND/OR VOMITING Last administered on 07/20/16 05:20; Admin Dose 4 MG; Start 07/16/16 at 19:30 Hydralazine HCl (Apresoline) 10 mg Q4H PRN IV elevated bp; Start 07/16/16 at 21 :00 Metoclopramide HCl (Reglan) 10 mg Q6H PRN IV nausea Last administered on 21:11; Admin Dose 10 MG; Start 07/16/16 at 23:00 Alprazolam (Xanax) 1 mg Q12H PRN PO ANXIETY Last administered on 07/21/16 09: 09; Admin Dose 1 MG; Start 07/17/16 at 19:00 Docusate Sodium (Colace) 100 mg BID PO Last administered on 07/21/16 09:09; Admin Dose 100 MG; Start 07/19/16 at 21:00 Pantoprazole (Protonix Tab) 40 mg BID@06,18 PO Last administered on 07/21/16 05:33; Admin Dose 40 MG; Start 07/19/16 at 14:59 Acetaminophen/ Hydrocodone Bitart ([place] (5/325)) 1 tab Q6H PRN PO PAIN; Start 07/21/16 at 10:30; Status UNV Gisella QUIJANO Jul 21, 2016 10:26
[2016-07-21] MEDS ORDERED: HYDROCODONE/APAP (5/325) TAB PO PRN (10:30)
[2016-07-21] MEDS: SOD CHLORIDE 0.9% 1,000 ML IV SCH (11:30)
[2016-07-21] MEDS: OXYCODONE/ACETAMINOPHEN (10/325) TAB PO PRN ×3 (11:46→23:54)
--- NOTE | 2016-07-21 18:32 | PN ---
Date/Time of Note Date/Time of Note DATE: 07/21/16 TIME: 18:30 Assessment/Plan VTE Prophylaxis VTE Prophylaxis Intervention: SCD's Lines/Catheters IV Catheter Type (from [facility]): Peripheral IV Urinary Cath still in place: No Assessment/Plan Chief Complaint/Hosp Course Assessment and plan: -Unresectable rectal polyp, s/p lap hand assist converted to open LAR with low colorectal anastomosis. Advance diet per surgery. -Anxiety - Hypokalemia, K replaced. -Status post bilateral rotator cuff repair Further recommendations based on clinical course. Plan of care discussed with Dr. Orr. Problems: Subjective 24 Hr Interval Summary Free Text/Dictation DRUG SAFETY ASSISTANT d/sideny, tolerates diet well, no BM. Exam/Review of Systems Vital Signs Vitals Vital Signs Date Time Temp Pulse Resp B/P Pulse Ox O2 Delivery O2 Flow Rate FiO2 07/21/16 07:41 98.2 72 18 148/67 95 07/21/16 07:35 Nasal Cannula 2.0 Intake and Output 07/20/16 07/20/16 07/21/16 15:00 23:00 07:00 Intake Total 1300 ml 960 ml Output Total 950 ml Balance 1300 ml 10 ml Exam Constitutional: alert, oriented Psych: no complaints Head: normocephalic Eyes: nl conjunctiva ENMT: nl external ears & nose Neck: non-tender, supple Respiratory: clear to auscultation Cardiovascular: nl pulses, regular rate and rhythm Gastrointestinal: other (Status post surgery), soft Extremities: normal pulses Neurological: [employer] MARKETING MANAGER II-XII intact Results Result Diagram: 07/21/16 0420 07/21/16 0420 Results 24 hrs Laboratory Tests Test 07/21/16 04:20 White Blood Count 10.9 H Red Blood Count 3.42 L Hemoglobin 10.9 L Hematocrit 32.3 L Mean Corpuscular Volume 94.4 Mean Corpuscular Hemoglobin 31.9 Mean Corpuscular Hemoglobin Concent 33.7 Red Cell Distribution Width 11.4 L Platelet Count 303 Mean Platelet Volume 9.7 Neutrophils % 73.2 Lymphocytes % 14.6 L Monocytes % 10.0 Eosinophils % 1.7 Basophils % 0.3 Nucleated Red Blood Cells % 0.0 Neutrophils # 8.0 H Lymphocytes # 1.6 Monocytes # 1.1 H Eosinophils # 0.2 Basophils # 0.0 Nucleated Red Blood Cells # 0.0 Sodium Level 138 Potassium Level 3.3 L Chloride Level 100 Carbon Dioxide Level 31 Anion Gap 10 # Blood Urea Nitrogen 7 Creatinine 0.49 Glucose Level 77 Calcium Level 8.1 L Medications Medications Current Medications Sodium Chloride 1,000 ml @ 75 mls/hr [id number] IV Last administered on 15:16; Admin Dose 75 MLS/HR; Start 07/16/16 at 11:30 Metronidazole (Flagyl 500 Mg (Pmx)) 100 ml @ 100 mls/hr Q8 IVPB Last administered on 07/21/16 14:18; Admin Dose 100 MLS/HR; Start 07/16/16 at 22:00 Morphine Sulfate 2 mg 2 mg Q2H PRN IV PAIN LEVEL 6-10; Start 07/16/16 at 16:00 Lactated Ringer's (Lr) 1,000 ml @ 100 mls/hr Q10H IV Last administered on 07/19 10:47; Admin Dose 100 MLS/HR; Start 07/16/16 at 15:33 Ondansetron HCl (Zofran Inj) 4 mg Q6H PRN IV NAUSEA AND/OR VOMITING Last administered on 07/20/16 05:20; Admin Dose 4 MG; Start 07/16/16 at 19:30 Hydralazine HCl (Apresoline) 10 mg Q4H PRN IV elevated bp; Start 07/16/16 at 21 :00 Metoclopramide HCl (Reglan) 10 mg Q6H PRN IV nausea Last administered on 21:11; Admin Dose 10 MG; Start 07/16/16 at 23:00 Alprazolam (Xanax) 1 mg Q12H PRN PO ANXIETY Last administered on 07/21/16 09: 09; Admin Dose 1 MG; Start 07/17/16 at 19:00 Docusate Sodium (Colace) 100 mg BID PO Last administered on 07/21/16 09:09; Admin Dose 100 MG; Start 07/19/16 at 21:00 Pantoprazole (Protonix Tab) 40 mg BID@06,18 PO Last administered on 07/21/16 18:14; Admin Dose 40 MG; Start 07/19/16 at 14:59 Oxycodone/ Acetaminophen (Endocet (10/ 325)) 1 tab Q6H PRN PO PAIN Last administered on 07/21/16t 18:14; Admin Dose 1 TAB; Start 07/21/16 at 10:30 DASIA DE SOUZA Jul 21, 2016 18:32
[2016-07-21] MEDS ORDERED: POTASSIUM CHLORIDE 20 MEQ POWDER FOR ORAL SOLN PO ONE (19:00)
[2016-07-21] MEDS ORDERED: POTASSIUM PHOSPHATE 20 MEQ in SOD CHLORIDE 0.9% 250 ML IVPB ONE (19:00)
[2016-07-21 19:49] VITALS: BP 139/73; RESP 18
[2016-07-21] MEDS ORDERED: POTASSIUM CHLORIDE 20 MEQ in SOD CHLORIDE 0.9% 100 ML IVPB ONE (21:00)
[2016-07-22] MEDS: SOD CHLORIDE 0.9% 1,000 ML IV SCH ×2 (00:50→14:10)
[2016-07-22] MEDS: LACTATED RINGER'S 1,000 ML IV SCH ×2 (01:33→11:33)
[2016-07-22 05:34] LABS: ADD SCAN DIFF NO
[2016-07-22 05:44] LABS: BASOPHILS % 0.2 % (0.0-2.0); EOSINOPHILS # 0.1 10^3/ul (0.0-0.5); EOSINOPHILS % 1.1 % (0.0-7.0); HEMOGLOBIN 11.8 g/dl (12.0-16.0); LYMPHOCYTES # 1.7 10^3/ul (0.8-2.9); LYMPHOCYTES % 17.3 % (15.0-51.0); MEAN CORPUSCULAR HEMOGLOBIN 31.6 pg (29.0-33.0); MEAN CORPUSCULAR HGB CONC 34.7 g/dl (32.0-37.0); MEAN CORPUSCULAR VOLUME 91.2 fl (82.0-101.0); MEAN PLATELET VOLUME 9.5 fl (7.4-10.4); MONOCYTE # 1.1 10^3/ul (0.3-0.9); MONOCYTES % 10.9 % (0.0-11.0); NEUTROPHILS % 70.1 % (39.0-77.0); PLATELET COUNT 343 10^3/UL (140-415); RED BLOOD COUNT 3.73 10^6/ul (4.20-5.40); RED CELL DISTRIBUTION WIDTH 11.3 % (11.5-14.5)
[2016-07-22] MEDS: PANTOPRAZOLE (EC) 40 MG TAB PO SCH ×2 (05:48→18:00)
[2016-07-22] MEDS: OXYCODONE/ACETAMINOPHEN (10/325) TAB PO PRN ×2 (05:48→12:10)
[2016-07-22] MEDS: metroNIDAZOLE 500 MG/NS (PMX) 100 ML IVPB SCH (05:49)
[2016-07-22 06:48] LABS: CREATININE 0.46 mg/dl (0.44-1.00)
[2016-07-22 06:49] LABS: CALCIUM 8.4 mg/dl (8.4-10.2)
[2016-07-22 08:12] VITALS: BP 138/84; RESP 20
[2016-07-22] MEDS: DOCUSATE SODIUM 100 MG CAP PO SCH (09:00)
[2016-07-22] MEDS: ALPRAZOLAM 1 MG TAB PO PRN (09:02)
--- NOTE | 2016-07-22 12:03 | PN ---
Date/Time of Note Date/Time of Note DATE: 07/22/16 TIME: 12:03 Assessment/Plan VTE Prophylaxis VTE Prophylaxis Intervention: SCD's Lines/Catheters IV C[facility] Type (from [facility] Saline Lock Urinary Cath still in place: No Assessment/Plan Chief Complaint/Hosp Course Assessment and plan: -Unresectable rectal polyp, s/p lap hand assist converted to open LAR with low colorectal anastomosis. Advance diet per surgery. -Anxiety - Hypokalemia, K replaced. -Status post bilateral rotator cuff repair Further recommendations based on clinical course. Plan of care discussed with Dr. Orr. Problems: Exam/Review of Systems Vital Signs Vitals Vital Signs Date Time Temp Pulse Resp B/P Pulse Ox O2 Delivery O2 Flow Rate FiO2 07/22/16 08:12 98.0 66 20 138/84 96 07/21/16 07:35 Nasal Cannula 2.0 Intake and Output 07/21/16 07/21/16 07/22/16 15:00 23:00 07:00 Intake Total 1200 ml 710 ml Balance 1200 ml 710 ml Exam Constitutional: alert, oriented Psych: no complaints Head: normocephalic Eyes: nl conjunctiva ENMT: nl external ears & nose Neck: non-tender, supple Respiratory: clear to auscultation Cardiovascular: nl pulses, regular rate and rhythm Gastrointestinal: other (Status post surgery), soft Extremities: normal pulses Neurological: FOREST NURSERY WORKER II-XII intact Results Result Diagram: 07/22/165 07/22/165 Results 24 hrs Laboratory Tests Test 07/22/16 04:55 White Blood Count 10.0 Red Blood Count 3.73 L Hemoglobin 11.8 L Hematocrit 34.0 L Mean Corpuscular Volume 91.2 Mean Corpuscular Hemoglobin 31.6 Mean Corpuscular Hemoglobin Concent 34.7 Red Cell Distribution Width 11.3 L Platelet Count 343 Mean Platelet Volume 9.5 Neutrophils % 70.1 Lymphocytes % 17.3 Monocytes % 10.9 Eosinophils % 1.1 Basophils % 0.2 Nucleated Red Blood Cells % 0.0 Neutrophils # 7.0 Lymphocytes # 1.7 Monocytes # 1.1 H Eosinophils # 0.1 Basophils # 0.0 Nucleated Red Blood Cells # 0.0 Sodium Level 137 Potassium Level 3.0 L Chloride Level 101 Carbon Dioxide Level 27 Anion Gap 12 Blood Urea Nitrogen 5 L Creatinine 0.46 Glucose Level 106 Calcium Level 8.4 Medications Medications Current Medications Sodium Chloride (NS) 1,000 ml @ 75 mls/hr [id number] IV Last administered on 07/20 15:16; Admin Dose 75 MLS/HR; Start 07/16/16 at 11:30 Morphine Sulfate 2 mg 2 mg Q2H PRN IV PAIN LEVEL 6-10; Start 07/16/16 at 16:00 Lactated Ringer's (Lr) 1,000 ml @ 100 mls/hr Q10H IV Last administered on 07/19 10:47; Admin Dose 100 MLS/HR; Start 07/16/16 at 15:33 Ondansetron HCl (Zofran Inj) 4 mg Q6H PRN IV NAUSEA AND/OR VOMITING Last administered on 07/20/16 05:20; Admin Dose 4 MG; Start 07/16/16 at 19:30 Hydralazine HCl (Apresoline) 10 mg Q4H PRN IV elevated bp; Start 07/16/16 at 21 :00 Metoclopramide HCl (Reglan) 10 mg Q6H PRN IV nausea Last administered on 21:11; Admin Dose 10 MG; Start 07/16/16 at 23:00 Alprazolam (Xanax) 1 mg Q12H PRN PO ANXIETY Last administered on 07/22/16 09: 02; Admin Dose 1 MG; Start 07/17/16 at 19:00 Docusate Sodium (Colace) 100 mg BID PO Last administered on 07/21/16 21:10; Admin Dose 100 MG; Start 07/19/16 at 21:00 Pantoprazole (Protonix Tab) 40 mg BID@06,18 PO Last administered on 07/22/16 05:48; Admin Dose 40 MG; Start 07/19/16 at 14:59 Oxycodone/ Acetaminophen (Endocet (10/ 325)) 1 tab Q6H PRN PO PAIN Last administered on 07/22/16 05:48; Admin Dose 1 TAB; Start 07/21/16 at 10:30 Metronidazole (Flagyl) 500 mg TID PO ; Start 07/22/16 at 13:00 DASIA DE SOUZA Jul 22, 2016 12:03
[2016-07-22] MEDS ORDERED: POTASSIUM CHLORIDE 20 MEQ POWDER FOR ORAL SOLN PO ONE (12:30)
[2016-07-22] MEDS ORDERED: metroNIDAZOLE 500 MG TAB PO SCH (13:00)
[2016-07-22] MEDS ORDERED: POTASSIUM CHLORIDE 30 MEQ in SOD CHLORIDE 0.9% 150 ML IVPB ONE (13:30)
--- NOTE | 2016-07-22 14:24 | PN ---
Date/Time of Note Date/Time of Note DATE: 07/22/16 TIME: 14:23 Assessment/Plan VTE Prophylaxis VTE Prophylaxis Intervention: SCD's Lines/Catheters IV C[facility]ter Type ([facility] [place] Lock Urinary Cath still in place: No Assessment/Plan Chief Complaint/Hosp Course s/p lap hand assist converted to open LAR with low colorectal anastomosis Problems: Assessment/Plan doing well tolerating diet, moving bowels dc home f/u 1-2 weeks Subjective 24 Hr Interval Summary Free Text/Dictation doing well, tolerating diet moving bowels Exam/Review of Systems Vital Signs Vitals Vital Signs Date Time Temp Pulse Resp B/P Pulse Ox O2 Delivery O2 Flow Rate FiO2 07/22/16 08:12 98.0 66 20 138/84 96 07/21/16 07:35 Nasal Cannula 2.0 Intake and Output 07/21/16 07/21/16 07/22/16 15:00 23:00 07:00 Intake Total 1200 ml 710 ml Balance 1200 ml 710 ml Exam incision c/d/i Results Result Diagram: 07/22/16 0455 07/22/16 0455 Results 24 hrs Laboratory Tests Test 07/22/16 04:55 White Blood Count 10.0 Red Blood Count 3.73 L Hemoglobin 11.8 L Hematocrit 34.0 L Mean Corpuscular Volume 91.2 Mean Corpuscular Hemoglobin 31.6 Mean Corpuscular Hemoglobin Concent 34.7 Red Cell Distribution Width 11.3 L Platelet Count 343 Mean Platelet Volume 9.5 Neutrophils % 70.1 Lymphocytes % 17.3 Monocytes % 10.9 Eosinophils % 1.1 Basophils % 0.2 Nucleated Red Blood Cells % 0.0 Neutrophils # 7.0 Lymphocytes # 1.7 Monocytes # 1.1 H Eosinophils # 0.1 Basophils # 0.0 Nucleated Red Blood Cells # 0.0 Sodium Level 137 Potassium Level 3.0 L Chloride Level 101 Carbon Dioxide Level 27 Anion Gap 12 Blood Urea Nitrogen 5 L Creatinine 0.46 Glucose Level 106 Calcium Level 8.4 Medications Medications Current Medications Sodium Chloride (NS) 1,000 ml @ 75 mls/hr [id number] IV Last administered on 07/20t 15:16; Admin Dose 75 MLS/HR; Start 07/16/16 at 11:30 Morphine Sulfate 2 mg 2 mg Q2H PRN IV PAIN LEVEL 6-10; Start 07/16/16 at 16:00 Lactated Ringer's (Lr) 1,000 ml @ 100 mls/hr Q10H IV Last administered on 07/19 10:47; Admin Dose 100 MLS/HR; Start 07/16/16 at 15:33 Ondansetron HCl (Zofran Inj) 4 mg Q6H PRN IV NAUSEA AND/OR VOMITING Last administered on 07/20/16 05:20; Admin Dose 4 MG; Start 07/16/16 at 19:30 Hydralazine HCl (Apresoline) 10 mg Q4H PRN IV elevated bp; Start 07/16/16 at 21 :00 Metoclopramide HCl (Reglan) 10 mg Q6H PRN IV nausea Last administered on 21:11; Admin Dose 10 MG; Start 07/16/16 at 23:00 Alprazolam (Xanax) 1 mg Q12H PRN PO ANXIETY Last administered on 07/22/16 09: 02; Admin Dose 1 MG; Start 07/17/16 at 19:00 Docusate Sodium (Colace) 100 mg BID PO Last administered on 07/21/16 21:10; Admin Dose 100 MG; Start 07/19/16 at 21:00 Pantoprazole (Protonix Tab) 40 mg BID@06,18 PO Last administered on 07/22/16 05:48; Admin Dose 40 MG; Start 07/19/16 at 14:59 Oxycodone/ Acetaminophen (Endocet (10/ 325)) 1 tab Q6H PRN PO PAIN Last administered on 07/22/16 12:10; Admin Dose 1 TAB; Start 07/21/16 at 10:30 Metronidazole (Flagyl) 500 mg TID PO Last administered on 07/22/16 13:17; Admin Dose 500 MG; Start 07/22/16 at 13:00 Gisella QUIJANO Jul 22, 2016 14:24
[2016-07-22 16:07] VITALS: PULSE 18; RESP 18
[2016-07-22 17:00] VITALS: BP 183/77; PULSE 62
[2016-07-22] MEDS ORDERED: OXYCODONE/ACETAMINOPHEN (10/325) TAB PO ONE (17:00)
[2016-07-22 17:30] VITALS: BP 186/80; PULSE 60
[2016-07-22] MEDS ORDERED: ALPRAZOLAM 1 MG TAB PO ONE (17:30)
[2016-07-22 18:58] VITALS: BP 144/76; PULSE 62; RESP 19
== END 2016-07-22 19:15 | disposition home or self-care (01) | DRG 333 ==
LOC: REC 09:40 → EDSTATUS 11:30 → MS1 18:55
PROVIDERS: ADMIT Internal Medicine; ATTEND Surgery
PROC: 0DBP0ZZ Excision of Rectum, Open Approach (ICD-10-PCS; principal; 2016-07-16 11:30)
DX: K62.1 Rectal polyp (principal); Z68.1 Body mass index [BMI] 19.9 or less, adult; J44.9 Chronic obstructive pulmonary disease, unspecified; M25.512 Pain in left shoulder; M25.511 Pain in right shoulder; F41.9 Anxiety disorder, unspecified; G89.4 Chronic pain syndrome; R63.4 Abnormal weight loss; R33.9 Retention of urine, unspecified; Z87.891 Personal history of nicotine dependence; E87.6 Hypokalemia
CPT/HCPCS: 80048; 80053; 81001; 81003; 84443; 85025; 85610; 85730; 88307; 90686; J0295; J0330; J0360; J0744; J1170; J1200; J2405; J2710; J2765; J2795; J3010; J3480; J7030; J7050; J7120